=== PATIENT | male | born 1960 | race Caucasian/White ===

== ENCOUNTER 2018-12-07 17:14 | Emergency (ER) | payer SELFPAY ==
[~2018-12-07] VITALS: Ht 177.8 cm; Wt 109.8 kg
[~2018-12-07 17:14] MED LIST: NAPR-985 PO
[2018-12-07 17:39] VITALS: Ht 177.8 cm; Wt 109.8 kg
[2018-12-07 19:59] VITALS: BP 144/89; PULSE 76; RESP 17
== END 2018-12-07 19:59 | disposition home or self-care (01) ==
LOC: FTE 17:14
DX: M54.5 Low back pain (principal)
CPT/HCPCS: 99282

== ENCOUNTER 2018-12-12 14:14 | Emergency (ER) | payer SELFPAY ==
[~2018-12-12] VITALS: Ht 165.1 cm; Wt 90.0 kg
[2018-12-12 14:16] VITALS: BP 143/92; PULSE 95; RESP 18; Ht 165.1 cm; Wt 90.0 kg
== END 2018-12-12 14:31 | disposition left against medical advice (07) ==
LOC: FTE 14:14 → E/R 14:31
DX: Z53.21 Procedure and treatment not carried out due to patient leaving prior to being seen by health care provider (principal)